=== PATIENT | female | born 1955 | race Caucasian/White ===

== ENCOUNTER 2017-04-19 17:19 | Inpatient (IN) ==
--- NOTE | 2017-04-19 17:37 | Emergency Department Note ---
Abdominal Pain HPI - General Chief Complaint: Abdominal Pain Stated Complaint: incarcerated hernia Time Seen by Provider: 04/19/17 17:23 Source: EMS Mode of arrival: EMS Limitations: no limitations - History of Present Illness HPI Narrative: 61 year old female presenting via EMS transfer from [facility] in [place] with concern over strangulated umbilical hernia, with CT reported from [place], consulted oncology specialist surgeon Dr. Lam, with plans for triage through ER. Patient presenting to ER with 1 day history of acute periumbilical abdominal pain, with nausea and emesis starting early this morning. Tried to eat breakfast and wasn't able to hold it down. Has had umbilical hernia for years, however this morning became exquisitely tender. - Related Data Home Medications Medication Instructions Recorded Confirmed Ascorbic Acid [Vitamin C] 1,000 mg PO DAILY 04/19/17 04/19/17 Insulin Glargine,Hum.rec.anlog 50 unit SQ QAM 04/19/17 04/19/17 [Lantus Solostar] Lisinopril [Zestril] 20 mg PO DAILY 04/19/17 04/19/17 Mecobalamin [B-12] 1,000 mcg SL DAILY 04/19/17 04/19/17 Vitamin D3 5,000 unit PO DAILY 04/19/17 04/19/17 diphenhydrAMINE HCL [Aler-Cap] 25 mg PO DAILYP PRN 04/19/17 04/19/17 metFORMIN HCL [Glucophage] 1,000 mg PO BID 04/19/17 04/19/17 Allergies Allergy/AdvReac Type Severity Reaction Status Date / Time aloe vera Allergy Rash Verified 04/19/17 17:25 Cortisone Allergy Rash Verified 04/19/17 17:25 lavender (Lavandula Allergy Rash Verified 04/19/17 17:25 angustifolia) Penicillins Allergy Rash Verified 04/19/17 17:25 Amoxicillin [From Augmentin] AdvReac Nausea Verified 04/19/17 17:34 azithromycin AdvReac Vomiting Verified 04/19/17 17:25 clavulanic acid AdvReac Nausea Verified 04/19/17 17:34 [From Augmentin] Review of Systems All systems ED: reviewed and negative except as stated. Abdominal Pain PMH - Past Medical History Attestation: Yes: The following information was validated with the patient. Medical history: Reports: non-contributory - Social History Smoking status: Never smoker Physical Exam - General Limitations: no limitations General appearance: alert, in no apparent distress - Head Head exam: atraumatic, normocephalic - Eye Eye exam: Present: normal appearance, PERRL, EOMI - ENT ENT exam: normal exam, normal oropharynx, mucous membranes moist - Neck Neck exam: Present: normal inspection, full ROM - Chest Chest inspection: Present: normal inspection, symmetric chest wall rise - Respiratory Respiratory exam: Present: normal lung sounds bilaterally. Absent: respiratory distress - Cardiovascular Cardiovascular exam: Present: regular rate, normal rhythm, normal heart sounds - Abdominal Exam Abdominal exam: Present: soft, tenderness, normal bowel sounds. Absent: distention, guarding, rebound, rigidity Abdominal tenderness: Present: moderate (periumbilical) Course Vital Signs Temperature 98.4 F 04/19/17 17:19 Pulse Rate 106 H 04/19/17 17:19 Respiratory Rate 16 04/19/17 17:19 Blood Pressure 125/72 04/19/17 17:19 Pulse Oximetry (%) 96 04/19/17 17:19 Temperature 98.4 F 04/19/17 17:19 Pulse Rate 103 H 04/19/17 17:35 Respiratory Rate 16 04/19/17 17:19 Blood Pressure 133/66 04/19/17 17:33 Pulse Oximetry (%) 97 04/19/17 17:35 Abdominal Pain - MDM Narrative Medical decision making narrative: Dr. Lam, oncology specialist surgeon, accepted transfer via [facility] for concern over possible strangulated umbilical hernia defect. CT pushed over from [place]. CBC without leukocytosis, CMP and UA normal. Patient to undergo hernia repair via Dr. Lam, transferred to [facility] in fair condition. - Lab Data Lab results reviewed: Yes I reviewed the patient's lab results. Result diagrams: 04/19/17 18:10 04/19/17 18:10 Lab Results 04/19/17 04/19/17 04/19/17 Range/Units 18:10 18:10 18:16 WBC 10.4 (4.5-11.0) K/mcL RBC 4.55 (4.00-5.20) M/mcL Hgb 14.3 (12.0-15.0) g/dL Hct 42.5 (36.0-48.0) % MCV 93.6 (80.0-100.0) fL MCH 31.5 (26.0-34.0) pg MCHC 33.6 (31.0-36.0) g/dL RDW 13.1 (11.5-14.5) % Plt Count 216 (140-440) K/mcL MPV 7.5 (7.4-10.4) fL Gran % 87.1 H (38.0-78.0) % Lymph % (Auto) 10.3 L (15.5-49.0) % [place] % (Auto) 1.9 (1.0-12.0) % Eos % (Auto) 0.6 (0.0-7.0) % Baso % (Auto) 0.1 (0.0-2.0) % Gran # 9.0 H (1.8-8.0) K/mcL Lymph # (Auto) 1.1 L (1.5-4.8) K/mcL Toole # (Auto) 0.2 (0.1-0.9) K/mcL Eos # (Auto) 0.1 (0.0-0.7) K/mcL Baso # (Auto) 0 (0.0-0.3) K/mcL VBG Lactic Acid (0.5-2.2) mmol/L Sodium 137 (133-145) mmol/L Potassium 4.3 (3.3-5.1) mmol/L Chloride 98 (96-108) mmol/L Carbon Dioxide 26 (22-30) mmol/L Anion Gap 13.0 (8-16) BUN 12 (8-23) mg/dl Creatinine 0.7 (0.6-1.1) mg/dl GFR Calculation 92 Glucose 302 H (70-105) mg/dL Calcium 9.1 (8.6-10.4) mg/dl Total Bilirubin 0.7 (0.0-1.0) mg/dL AST 24 (0-37) U/l ALT 23 (0-40) U/l Alkaline Phosphatase 79 (39-117) U/L Total Protein 7.3 (5.9-8.4) gm/dL Albumin 4.1 (3.2-5.2) gm/dL Globulin 3.2 (2.2-3.7) gm/dL Albumin/Globulin Ratio 1.3 (1.0-2.3) Urine Color Straw Urine Appearance Clear Urine pH 6.0 (5.0-9.0) Ur Specific [place] 1.059 H (1.000-1.035) Urine Protein Neg (NEG) mg/dL Urine Glucose (UA) >=500 A (NEG) mg/dL Urine Ketones 20 A (NEG) mg/dL Urine Occult Blood Neg (<0.03) mg/dL Urine Nitrate Neg (NEG) Urine Bilirubin Neg (NEG) mg/dL Urine Urobilinogen Neg (NEG) mg/dL Ur Leukocyte Esterase Neg (NEG) /uL Urine RBC 0 (0-1) /hpf Urine WBC 0 (0-4) /hpf Ur Squamous Epith Cells 1 (0-4) /hpf Urine Bacteria 0 (0) /hpf Urine Mucus Few (0) /hpf Ur Culture Indicated? No 04/19/17 Range/Units 18:32 WBC (4.5-11.0) K/mcL RBC (4.00-5.20) M/mcL Hgb (12.0-15.0) g/dL Hct (36.0-48.0) % MCV (80.0-100.0) fL MCH (26.0-34.0) pg MCHC (31.0-36.0) g/dL RDW (11.5-14.5) % Plt Count (140-440) K/mcL MPV (7.4-10.4) fL Gran % (38.0-78.0) % Lymph % (Auto) (15.5-49.0) % [place]ole % (Auto) (1.0-12.0) % Eos % (Auto) (0.0-7.0) % Baso % (Auto) (0.0-2.0) % Gran # (1.8-8.0) K/mcL Lymph # (Auto) (1.5-4.8) K/mcL [place]ole # (Auto) (0.1-0.9) K/mcL Eos # (Auto) (0.0-0.7) K/mcL Baso # (Auto) (0.0-0.3) K/mcL VBG Lactic Acid 2.0 (0.5-2.2) mmol/L Sodium (133-145) mmol/L Potassium (3.3-5.1) mmol/L Chloride (96-108) mmol/L Carbon Dioxide (22-30) mmol/L Anion Gap (8-16) BUN (8-23) mg/dl Creatinine (0.6-1.1) mg/dl GFR Calculation Glucose (70-105) mg/dL Calcium (8.6-10.4) mg/dl Total Bilirubin (0.0-1.0) mg/dL AST (0-37) U/l ALT (0-40) U/l Alkaline Phosphatase (39-117) U/L Total Protein (5.9-8.4) gm/dL Albumin (3.2-5.2) gm/dL Globulin (2.2-3.7) gm/dL Albumin/Globulin Ratio (1.0-2.3) Urine Color Urine Appearance Urine pH (5.0-9.0) Ur Specific [place] (1.000-1.035) Urine Protein (NEG) mg/dL Urine Glucose (UA) (NEG) mg/dL Urine Ketones (NEG) mg/dL Urine Occult Blood (<0.03) mg/dL Urine Nitrate (NEG) Urine Bilirubin (NEG) mg/dL Urine Urobilinogen (NEG) mg/dL Ur Leukocyte Esterase (NEG) /uL Urine RBC (0-1) /hpf Urine WBC (0-4) /hpf Ur Squamous Epith Cells (0-4) /hpf Urine Bacteria (0) /hpf Urine Mucus (0) /hpf Ur Culture Indicated? Disposition Pt seen by [facility]/PA only: No Clinical Impression: Umbilical hernia with obstruction, without gangrene Disposition: Xfer As Outpt/Obs ([facility]) Condition: Fair Referrals: Dean Duran MD [Primary Care Provider] -
[2017-04-19 18:34] LABS: Basophils # (Auto) 0 K/mcL (0.0-0.3); Basophils % (Auto) 0.1 % (0.0-2.0); Eosinophils # (Auto) 0.1 K/mcL (0.0-0.7); Eosinophils % (Auto) 0.6 % (0.0-7.0); Granulocytes % (Auto) 87.1 % (38.0-78.0); Lymphocytes # (Auto) 1.1 K/mcL (1.5-4.8); Lymphocytes % (Auto) 10.3 % (15.5-49.0); Mean Cell Volume 93.6 fL (80.0-100.0); Mean Corpuscular HGB Conc 33.6 g/dL (31.0-36.0); Mean Corpuscular Hemoglobin 31.5 pg (26.0-34.0); Monocytes # (Auto) 0.2 K/mcL (0.1-0.9); Monocytes % (Auto) 1.9 % (1.0-12.0); Platelet Count 216 K/mcL (140-440); RBC 4.55 M/mcL (4.00-5.20); Red Cell Distribution Width 13.1 % (11.5-14.5)
[2017-04-19 18:48] LABS: Appearance,Urine CLEAR; Bacteria,Urine 0 /hpf (0); Bilirubin,Urine NEG (NEG); Color,Urine STRAW; Glucose,Urine (UA) >=500 mg/dL (NEG); Leukocyte Esterase,Urine NEG /uL (NEG); Mucus,Urine FEW /hpf (0); Nitrate,Urine NEG (NEG); Protein,Urine NEG (NEG); Specific Gravity,Urine 1.059 (1.000-1.035); Urine Blood NEG mg/dL (<0.03); Urine RBC 0 /hpf (0-1); Urine Squamous Epithelial Cell 1 /hpf (0-4); Urine WBC 0 /hpf (0-4); Urobilinogen,Urine NEG (NEG)
[2017-04-19 18:52] LABS: ALT/SGPT 23 U/l (0-40); Albumin 4.1 gm/dL (3.2-5.2); Albumin/Globulin Ratio 1.3 (1.0-2.3); Alkaline Phosphatase 79 U/L (39-117); Blood Urea Nitrogen 12 mg/dl (8-23)
[2017-04-19] MEDS ORDERED: LEVOFLOXACIN 750 MG/150 ML BAG IV ONE (19:20)
--- NOTE | 2017-04-19 19:28 | General Surg History&Physical ---
History of Present Illness Patient information: Note initiated : 04/19/17 at 7:26 pm Service Date, if different from initiated Date: [] Patient: Anna Leary a 61 y/o F admitted on for incarcerated hernia. Chief Complaint: [] HPI: Ms. Leary is a 61 year old F with history of recurrent abdominal pain over the last few days. She had acute onset of severe pain this morning after breakfast. This was followed by multiple episodes of nausea and vomiting with emesis over 6 times. She was seen at the hospital in [place] and referred here with an incarcerated umbilical hernia with bowel obstruction. She has a loop of bowel that is tightly incarcerated in her umbilicus with distal obstruction. She also has uncontrolled diabetes. Review of Systems - Constitutional headache(s) - EENT Nose, mouth and throat: headache(s) - Cardiovascular no chest pain, no dyspnea on exertion, no irregular heart rhythm, no palpatations, no syncope - Respiratory no wheezing, no snoring, no chest congestion - Gastrointestinal abdominal pain, cramping, heartburn, nausea, vomiting - Genitourinary Genitourinary: nocturia, urinary frequency - Musculoskeletal arthralgias, back pain, joint swelling, myalgias, stiffness - Integumentary no change in hair, no changing lesions, no pruritus, no rash - Neurological numbness, paresthesias - Psychiatric no anxiety, no confusion, no depression - Endocrine no polydipsia, no polyphagia, no polyuria - Hematologic/Lymphatic no easy bleeding, no easy bruising, no lymphadenopathy - Allergic/Immunologic no tongue swelling, no throat swelling, no uticaria, no wheezing, no lip swelling Past History Past medical history: Diabetes mellitus uncontrolled Hypertension Gastroesophageal reflux disease Past surgical history: Open cholecystectomy Open treatment with internal fixation left leg Left total knee arthroplasty Past family history: Mother age 24 due to polio complications Father age 81 due to myocardial infarction Brother with diabetes mellitus and hypertension Grandparent with breast cancer Past social history: Employed Denies alcohol use Denies drug use Medications and Allergies Home Medications Medication Instructions Recorded Confirmed Type Ascorbic Acid [Vitamin C] 1,000 mg PO DAILY 04/19/17 04/19/17 History Insulin Glargine,Hum.rec.anlog 50 unit SQ QAM 04/19/17 04/19/17 History [Lantus Solostar] Lisinopril [Zestril] 20 mg PO DAILY 04/19/17 04/19/17 History Mecobalamin [B-12] 1,000 mcg SL DAILY 04/19/17 04/19/17 History Vitamin D3 5,000 unit PO DAILY 04/19/17 04/19/17 History diphenhydrAMINE HCL [Aler-Cap] 25 mg PO DAILYP PRN 04/19/17 04/19/17 History metFORMIN HCL [Glucophage] 1,000 mg PO BID 04/19/17 04/19/17 History Allergies Allergy/AdvReac Type Severity Reaction Status Date / Time aloe vera Allergy Rash Verified 04/19/17 17:25 Cortisone Allergy Rash Verified 04/19/17 17:25 lavender (Lavandula Allergy Rash Verified 04/19/17 17:25 angustifolia) Penicillins Allergy Rash Verified 04/19/17 17:25 Amoxicillin [From Augmentin] AdvReac Nausea Verified 04/19/17 17:34 azithromycin AdvReac Vomiting Verified 04/19/17 17:25 clavulanic acid AdvReac Nausea Verified 04/19/17 17:34 [From Augmentin] Exam Temp Pulse Resp BP Pulse Ox 98.4 F 103 H 16 133/66 97 04/19/17 17:19 04/19/17 17:35 04/19/17 17:19 04/19/17 17:33 04/19/17 17:35 - General physical appearance well developed, well nourished, no distress, moderate pain, obese - Eyes PERRL, normal ocular movement - ENT normal pinna, normal nares, normal mucosa, no hearing loss, no congestion, decreased hearing (Decreased hearing left ear) - Head Head exam IM: Present: atraumatic, normocephalic - Neck no masses, no bruits, trachea midline, no lymphadectomy, no venous distension - Cardiovascular Cardiovascular exam IM: Present: normal rate and rhythm, RRR, +S1, +S2. Absent : JVD, systolic murmur - Respiratory normal expansion, normal respiratory effort, clear to percussion, clear to auscultation - Abdomen Abdomen: Present: soft, non tender, bowel sounds Hernia: Present: none, umbilical (Tender abdomen in the periumbilical area with large amount of debris and umbilicus; hyperactive bowel sounds) - Genitourinary Present: normal external genitalia - Integumentary Present: no rash, no growths, no abnormal pigmentation - Neurologic Present: normal coordination, normal sensation - Musculoskeletal Present: normal gait, normal posture, other (Operative changes left knee well- healed) - Psychiatric Present: oriented to time, oriented to person, oriented to place, speech is normal, memory intact Assessment and Plan (1) Umbilical hernia with obstruction, without gangrene Patient has small bowel obstruction and will have operative repair tonight. She will be covered with Levaquin IV. Status: Acute (2) Diabetes mellitus type 1, uncontrolled, insulin dependent Blood sugars will be controlled with sliding scale insulin until the patient can take p.o. Status: Acute Qualifiers: Diabetes mellitus complication status: with hyperglycemia Qualified Code(s) : E10.65 - Type 1 diabetes mellitus with hyperglycemia
[2017-04-19] MEDS ORDERED: fentaNYL 100 MCG/2 ML VIAL IV ONE (20:25)
[2017-04-19] MEDS ORDERED: ROCURONIUM 10 MG/ML ML IV ONE (20:25)
[2017-04-19] MEDS ORDERED: ONDANSETRON 4 MG/2 ML VIAL IV ONE (20:25)
[2017-04-19] MEDS ORDERED: DEXAMETHASONE 10 MG/ML VIAL IV ONE (20:25)
[2017-04-19] MEDS ORDERED: SUCCINYLCHOLINE 20 MG/ML ML IV ONE (20:25)
[2017-04-19] MEDS ORDERED: GLYCOPYRROLATE 0.2 MG/ML VIAL IV ONE (20:25)
[2017-04-19] MEDS ORDERED: NEOSTIGMINE 1 MG/ML VIAL IV ONE (20:25)
[2017-04-19] MEDS ORDERED: PROPOFOL 200 MG/20 ML VIAL IV ONE (20:25)
[2017-04-19] MEDS ORDERED: MIDAZOLAM 5 MG/5 ML VIAL IV ONE (20:25)
[2017-04-19] MEDS ORDERED: LIDOCAINE HCL/PF 100 MG/5 ML SYRINGE IV ONE (20:25)
[2017-04-19] MEDS ORDERED: MEPERIDINE 25 MG/ML SYRINGE IV PRN (20:56)
[2017-04-19] MEDS ORDERED: NALOXONE HCL 0.4 MG/ML VIAL IV PRN (20:56)
[2017-04-19] MEDS ORDERED: BENZOCAINE/MENTHOL 1 LOZENGE PO PRN (20:56)
[2017-04-19] MEDS ORDERED: ACETAMINOPHEN 1,000 MG/100 ML BOTTLE IV ONE (20:56)
[2017-04-19] MEDS ORDERED: diphenhydrAMINE 50 MG/ML VIAL IV PRN (20:56)
[2017-04-19] MEDS ORDERED: HYDROmorphone 2 MG/ML SYRINGE IV PRN ×2 (20:56→22:06)
[2017-04-19] MEDS ORDERED: FLUMAZENIL 0.1 MG/ML ML IV PRN (20:56)
[2017-04-19] MEDS ORDERED: IPRATROPIUM/ALBUTEROL 3 ML AMPUL.NEB NEB PRN (20:56)
[2017-04-19] MEDS ORDERED: fentaNYL 100 MCG/2 ML VIAL IV PRN (20:56)
[2017-04-19] MEDS ORDERED: ONDANSETRON 4 MG/2 ML VIAL IV PRN ×2 (20:56→22:06)
[2017-04-19] MEDS ORDERED: LACTATED RINGERS 250 ML IV PRN (20:56)
[2017-04-19] MEDS ORDERED: LACTATED RINGERS 1,000 ML IV SCH (21:00)
--- NOTE | 2017-04-19 21:12 | Brief Operative Note ---
Date of procedure: 04/19/17 Pre-op diagnosis: incarcerated umbilical hernia with small bowel obstruction Post-op diagnosis: other (incarcerated umbilical hernia with small bowel obstruction) Procedure: exploratory laparotomy Grafts/Implants: No Anesthesia: GETA Findings: segment of small bowel tightly incarcerated in umbilical fascial defect but the bowel was viable Complications: none Surgeon: Gracia Lam Specimens Removed/Pathology: none sent Condition: stable Disposition: PACU
[2017-04-19] MEDS ORDERED: LEVOFLOXACIN 500 MG/100 ML BAG IV SCH (22:06)
[2017-04-19] MEDS ORDERED: DEXTROSE 31 GM ORAL.SUSP PO PRN (22:06)
[2017-04-19] MEDS ORDERED: DEXTROSE 50% 50 ML VIAL IV PRN (22:06)
[2017-04-19] MEDS ORDERED: HYDROmorphone 2 MG/ML SYRINGE ONE (22:22)
[2017-04-19] MEDS: 0.9 % SODIUM CHLORIDE 10 ML SYRINGE IV SCH (22:28)
[2017-04-19] MEDS: 0.9 % SODIUM CHLORIDE 1,000 ML IV SCH (22:28)
[2017-04-20] MEDS: 0.9 % SODIUM CHLORIDE 1,000 ML IV SCH ×3 (06:08→16:48)
[2017-04-20 07:33] LABS: Mean Cell Volume 94.7 fL (80.0-100.0); Mean Corpuscular HGB Conc 33.8 g/dL (31.0-36.0); Platelet Count 190 K/mcL (140-440); RBC 4.16 M/mcL (4.00-5.20); Red Cell Distribution Width 13.1 % (11.5-14.5)
[2017-04-20] MEDS: 0.9 % SODIUM CHLORIDE 10 ML SYRINGE IV SCH ×3 (07:50→21:47)
[2017-04-20 07:51] LABS: ALT/SGPT 18 U/l (0-40); Albumin 3.6 gm/dL (3.2-5.2); Albumin/Globulin Ratio 1.3 (1.0-2.3); Alkaline Phosphatase 65 U/L (39-117); Bilirubin,Direct < 0.2 mg/dL (0.0-0.3); Blood Urea Nitrogen 12 mg/dl (8-23); Gamma Glutamyl Transpeptidase 23 U/L (5-36); Magnesium 1.6 mg/dL (1.6-2.5); Uric Acid 4.2 mg/dL (2.5-8.0)
[2017-04-20] MEDS ORDERED: HYDROcodone/APAP 10/325MG TABLET PO PRN (07:52)
[2017-04-20] MEDS ORDERED: MEPERIDINE 25 MG/ML SYRINGE IV PRN (07:53)
--- NOTE | 2017-04-20 08:41 | XRay Report ---
HISTORY: Reason for Exam:incarcerated hernia, surgical patient , preop FINDINGS: The lungs are clear. The heart, mediastinum, stephanie and pleura are normal. IMPRESSION: Normal chest. Interpreted and Authenticated by: Shankar Arriaga 04/20/17
--- NOTE | 2017-04-20 08:43 | XRay Report ---
HISTORY: Reason for Exam:incarcerated hernia FINDINGS: The bowel gas pattern is normal. There is no free intra-abdominal air or evidence or bowel obstruction. Contrast is present in the kidneys and bladder following the preceding CT scan. There is no urinary tract obstruction. Multiple surgical clips are present in the gallbladder fossa. Arthritis is seen in the facet joints in the lower lumbar spine. IMPRESSION: Normal exam Interpreted and Authenticated by: Shankar Arriaga 04/20/17
[2017-04-20] MEDS: FAMOTIDINE/PF 20 MG/2 ML VIAL IV SCH ×2 (08:50→20:50)
[2017-04-20] MEDS: ENOXAPARIN 40 MG/0.4 ML SYRINGE SQ SCH (08:50)
[2017-04-20] MEDS: METOCLOPRAMIDE 10 MG/2 ML VIAL IV SCH ×4 (08:50→23:33)
[2017-04-20] MEDS: ACETAMINOPHEN 1,000 MG/100 ML BOTTLE IV PRN ×3 (08:51→21:35)
[2017-04-20] MEDS ORDERED: LEVOFLOXACIN 500 MG/100 ML BAG IV SCH (09:00)
[2017-04-20] MEDS: INSULIN LISPRO 1 UNIT/0.01 ML UNIT SQ SCH ×4 (09:54→20:00)
[2017-04-20 10:59] LABS: Band Neutrophils % 1 % (0-10); Lymphocytes % 11 % (15-49); Monocytes % (Manual) 1 % (1-12); Platelet Estimate NORM (NORMAL); RBC Morphology NORM (NORMAL); Segmented Neutrophils % 87 % (38-78)
--- NOTE | 2017-04-20 12:57 | General Surgery Progress Note ---
Subjective Patient reports: feels better, pain is less, flatus, no bowel movement, afebrile Narrative: Note initiated : 04/20/17 at 12:57 pm Service Date, if different from initiated Date: [] Patient: Anna Leary 61 y/o F admitted on 04/19/17 for incarcerated hernia. Chief Complaint: [Patient feels much better. Her incisional discomfort is controlled with the IV Tylenol and low-dose Dilaudid. She has not had nausea or vomiting. She has passed a small amount of flatus. She is afebrile] Objective Temp Pulse Resp BP Pulse Ox 97.9 F 87 18 159/77 98 04/20/17 11:47 04/20/17 04:04 04/20/17 11:47 04/20/17 11:47 04/20/17 11:47 - Additional Data Intake & Output - Last 24 hours: Intake & Output 04/18/17 04/19/17 04/20/17 04/21/17 05:59 05:59 05:59 05:59 Intake Total 100 / 100 1558 / 1558 Output Total 450 / 450 1950 / 1950 Balance -350 / -350 -392 / -392 Weight 215 lb - General physical appearance no distress, moderate pain - Eyes PERRL - ENT no congestion - Neck no venous distension - Respiratory normal respiratory effort, clear to auscultation - Cardiovascular Cardiovascular exam: Present: normal rate and rhythm, RRR, +S1, +S2. Absent: gallop, JVD - Abdomen tender, bowel sounds, surgical scars, distended (Mild distention of abdomen but with good active bowel sounds; incision looks good with small amount of bleeding ;) - Integumentary no rash, no growths, no abnormal pigmentation - Neurologic normal coordination, normal sensation - Musculoskeletal normal gait, normal posture - Psychiatric oriented to time, oriented to person, oriented to place, speech is normal, memory intact - Labs 04/20/17 04:40 04/20/17 04:40 Diabetes panel 04/19/17 04/20/17 Range/Units 18:10 04:40 Sodium 137 139 (133-145) mmol/L Potassium 4.3 4.2 (3.3-5.1) mmol/L Chloride 98 100 (96-108) mmol/L Carbon Dioxide 26 25 (22-30) mmol/L BUN 12 12 (8-23) mg/dl Creatinine 0.7 0.7 (0.6-1.1) mg/dl Glucose 302 H 292 H (70-105) mg/dL Calcium 9.1 8.5 L (8.6-10.4) mg/dl AST 24 17 (0-37) U/l ALT 23 18 (0-40) U/l Alkaline Phosphatase 79 65 (39-117) U/L Total Protein 7.3 6.3 (5.9-8.4) gm/dL Albumin 4.1 3.6 (3.2-5.2) gm/dL Triglycerides 69 (<150) mg/dl Calcium panel 04/19/17 04/20/17 Range/Units 18:10 04:40 Calcium 9.1 8.5 L (8.6-10.4) mg/dl Phosphorus 3.1 (2.7-4.5) mg/dL Albumin 4.1 3.6 (3.2-5.2) gm/dL Pituitary panel 04/19/17 04/20/17 Range/Units 18:10 04:40 Sodium 137 139 (133-145) mmol/L Potassium 4.3 4.2 (3.3-5.1) mmol/L Chloride 98 100 (96-108) mmol/L Carbon Dioxide 26 25 (22-30) mmol/L BUN 12 12 (8-23) mg/dl Creatinine 0.7 0.7 (0.6-1.1) mg/dl Glucose 302 H 292 H (70-105) mg/dL Calcium 9.1 8.5 L (8.6-10.4) mg/dl Adrenal panel 04/19/17 04/20/17 Range/Units 18:10 04:40 Sodium 137 139 (133-145) mmol/L Potassium 4.3 4.2 (3.3-5.1) mmol/L Chloride 98 100 (96-108) mmol/L Carbon Dioxide 26 25 (22-30) mmol/L BUN 12 12 (8-23) mg/dl Creatinine 0.7 0.7 (0.6-1.1) mg/dl Glucose 302 H 292 H (70-105) mg/dL Calcium 9.1 8.5 L (8.6-10.4) mg/dl Total Bilirubin 0.7 0.7 (0.0-1.0) mg/dL AST 24 17 (0-37) U/l ALT 23 18 (0-40) U/l Alkaline Phosphatase 79 65 (39-117) U/L Total Protein 7.3 6.3 (5.9-8.4) gm/dL Albumin 4.1 3.6 (3.2-5.2) gm/dL Assessment and Plan (1) Umbilical hernia with obstruction, without gangrene Status: Acute Assessment and plan: Stable postoperative day 1 Reduce Dilaudid 2.5 mg IV every 4 hours as needed Advance to full liquid diet Have dressing changed Encourage patient to ambulate Current Visit: Yes (2) Diabetes mellitus type 1, uncontrolled, insulin dependent Status: Acute Current Visit: Yes - Time Spent With Patient Total time spent is greater than 50% in coordination of care (as documented) at patient's floor/unit and/or counseling patient:
[2017-04-21] MEDS: 0.9 % SODIUM CHLORIDE 1,000 ML IV SCH ×3 (00:27→09:13)
[2017-04-21] MEDS: METOCLOPRAMIDE 10 MG/2 ML VIAL IV SCH (05:40)
[2017-04-21] MEDS: 0.9 % SODIUM CHLORIDE 10 ML SYRINGE IV SCH (05:41)
[2017-04-21 08:24] LABS: ALT/SGPT 17 U/l (0-40); Albumin 3.7 gm/dL (3.2-5.2); Albumin/Globulin Ratio 1.4 (1.0-2.3); Alkaline Phosphatase 64 U/L (39-117); Bilirubin,Direct < 0.2 mg/dL (0.0-0.3); Blood Urea Nitrogen 10 mg/dl (8-23); Gamma Glutamyl Transpeptidase 24 U/L (5-36); Magnesium 1.8 mg/dL (1.6-2.5); Uric Acid 3.8 mg/dL (2.5-8.0)
[2017-04-21] MEDS: INSULIN LISPRO 1 UNIT/0.01 ML UNIT SQ SCH ×2 (08:37→11:53)
[2017-04-21] MEDS ORDERED: ACETAMINOPHEN 500 MG TABLET PO PRN (08:59)
[2017-04-21] MEDS ORDERED: LISINOPRIL 20 MG TABLET PO SCH (09:00)
[2017-04-21] MEDS ORDERED: LEVOFLOXACIN 500 MG TABLET PO SCH (09:00)
[2017-04-21] MEDS ORDERED: FAMOTIDINE 20 MG TABLET PO SCH (09:00)
[2017-04-21] MEDS: FAMOTIDINE/PF 20 MG/2 ML VIAL IV SCH (09:14)
[2017-04-21] MEDS: ENOXAPARIN 40 MG/0.4 ML SYRINGE SQ SCH (09:34)
--- NOTE | 2017-04-21 12:23 | Discharge Summary ---
Providers - Providers Patient information: Note initiated : 04/21/17 at 12:19 pm Service Date, if different from initiated Date: [] Patient: Anna Leary 61 y/o F admitted on 04/19/17 for incarcerated hernia. Chief Complaint: [] Date of admission: 04/19/17 Discharge date: 04/21/17 Attending physician: Gracia Lam Hospitalization Hospital course: 61-year-old female transferred from [facility] with the clinical bowel obstruction due to an incarcerated hernia at the umbilicus. She had acute onset of severe abdominal pain with nausea and vomiting. CT of the abdomen confirmed small bowel obstruction due to incarceration and the hernia defect. She was admitted to the emergency room and taken to the OR where exploratory laparotomy was done. She was found to have a segment of small bowel tightly incarcerated in the umbilical hernia defect. It was swollen and dusky but reached had return of excellent peristaltic activity. The rest of her bowel was unremarkable. She tolerated the operative procedure without incident. She was given clear liquids on the following morning and her diet has been slowly advanced. She no longer has nausea or vomiting. Her abdominal exam is benign. She is stable and was discharged home and satisfactory condition. Discharge diagnosis: Incarcerated umbilical hernia Secondary discharge diagnosis: Small bowel obstruction due to incarcerated hernia Reason for admission: Abdominal pain with nausea and vomiting Procedures: Exploratory laparotomy with umbilical hernia repair Complications: None Exam Temp Pulse Resp BP Pulse Ox 98.3 F 70 16 173/92 96 04/21/17 11:26 04/21/17 11:26 04/21/17 11:26 04/21/17 11:26 04/21/17 11:26 - General physical appearance well developed, well nourished, no distress - Eyes PERRL, normal ocular movement - ENT normal pinna, normal nares, normal mucosa, no hearing loss, no congestion - Head Head exam IM: Present: atraumatic, normocephalic - Neck no masses, no bruits, trachea midline, no lymphadectomy, no venous distension - Cardiovascular Cardiovascular exam IM: Present: normal rate and rhythm - Respiratory normal expansion, normal respiratory effort, clear to percussion, clear to auscultation - Abdomen Abdomen: Present: soft, tender, bowel sounds, distended (No significant distention; good active bowel sounds; mild bleeding around the incision records) Hernia: Present: none - Genitourinary Present: normal external genitalia - Integumentary Present: no rash, no growths, no abnormal pigmentation - Neurologic Present: normal coordination, normal sensation - Musculoskeletal Present: normal gait, normal posture - Psychiatric Present: oriented to time, oriented to person, oriented to place, speech is normal, memory intact Discharge Plan - Patient/Caregiver Discharge Instructions Activity: increase activity as tolerated Diet: Regular Diet (Cystogram) Additional Instructions: Patient will leave Tegaderm in place until she returns to the office Follow-up in the office in 2 weeks - Follow up Plan Follow up with: Dean Duran MD [Primary Care Provider] - Disposition: Home, Self-Care Prognosis: Good Rehab Potential: Good I certify that the patient requires SNF services.: No Overall status at discharge: patient is progressing back to baseline Pending Studies Resuscitation Status Full Code Diet Full Liquid Diet Start Sat Oct 7 Lunch Acetaminophen (Tylenol) 1,000 mg PO Q6HP PRN PRN Reason: PAIN/FEVER > 101 Last Admin: 04/21/17 09:33 Dose: 1,000 mg Diagnostic Test (Pha) (Accu-Chek) 1 each [facility] Last Admin: 04/21/17 11:54 Dose: 1 each Admin: 04/21/17 08:37 Dose: 1 each Admin: 04/20/17 20:00 Dose: 1 each Admin: 04/20/17 16:35 Dose: 1 each Admin: 04/20/17 13:23 Dose: Admin: 04/20/17 09:00 Dose: Not Given Enoxaparin Sodium (Lovenox) 40 mg SQ DAILY [facility] Last Admin: 04/21/17 09:34 Dose: 40 mg Admin: 04/20/17 08:50 Dose: 40 mg Famotidine (Pepcid) 20 mg PO BID [facility] Last Admin: 04/21/17 09:33 Dose: 20 mg Insulin Human Lispro (Humalog) 0 unit SQ ACHS [facility] PRN Reason: Protocol Last Admin: 04/21/17 11:53 Dose: 6 unit Admin: 04/21/17 08:37 Dose: 2 unit Admin: 04/20/17 20:00 Dose: Admin: 04/20/17 16:48 Dose: 6 unit Admin: 04/20/17 12:58 Dose: 6 unit Admin: 04/20/17 09:54 Dose: 6 unit Levofloxacin (Levaquin) 500 mg PO DAILY [facility] Last Admin: 04/21/17 09:34 Dose: 500 mg Lisinopril (Zestril) 20 mg PO DAILY [facility] Last Admin: 04/21/17 08:38 Dose: 20 mg Meperidine HCl (Demerol) 25 mg IV Q4HP PRN PRN Reason: Pain Last Admin: 04/21/17 00:26 Dose: 25 mg Metoclopramide HCl (Reglan) 10 mg IV Q6 [facility] Last Admin: 04/21/17 05:40 Dose: 10 mg Admin: 04/20/17 23:33 Dose: 10 mg Admin: 04/20/17 17:41 Dose: 10 mg Admin: 04/20/17 12:57 Dose: 10 mg Admin: 04/20/17 08:50 Dose: 10 mg Ondansetron HCl (Zofran) 4 mg IV Q6HP PRN PRN Reason: Nausea And Vomiting Last Admin: 04/20/17 14:58 Dose: 4 mg Sodium Chloride (Saline Flush) 10 ml IV Q8 [facility] Last Admin: 04/21/17 05:41 Dose: Not Given Admin: 04/20/17 21:47 Dose: Not Given Admin: 04/20/17 15:08 Dose: Not Given Admin: 04/20/17 07:50 Dose: Not Given Admin: 04/19/17 22:28 Dose: 10 ml Shift Summary 04/21/17 04:38 Shift Summary by Angus Mcconnell Addendum entered by Angus Mcconnell 04/21/17 04:44: Pt's ABD pain controlled with IV OFIRMEV - last dose 2134, and IV Demerol 25mg - last dose given 0025. Original Note: Patient has rested a few hrs tonight. She has been up AMB (I) to & from [facility] and w/ SBA out in [place]midt x2 - gait stable w/o device. She is voiding QS into hat. IV LT A/C infusing NS @ 125ml/hr. Midline ADB incision w/ corbin, min amt sang drainage, and covered w/ Tegaderm. She is tolerating a Full liquid diet. HS blood sugar was 121. VS - B/P has been slowly increasing - last was 195/80 - pt states she has not been taking her oral B/P med. All other VS - WNL on R.A.. She is calm, pleasant, & cooperative. Initialized on 04/21/17 04:38 - END OF NOTE
--- NOTE | 2017-04-26 10:42 | Operative Note ---
DATE OF OPERATION: 04/19/2017 PREOPERATIVE DIAGNOSIS: Incarcerated umbilical hernia with small bowel obstruction. POSTOPERATIVE DIAGNOSIS: Incarcerated umbilical hernia with small bowel obstruction. PROCEDURE: Exploratory laparotomy. SURGEON: Gracia Lam MD FINDINGS: Segment of small bowel tightly incarcerated and umbilical fascial defect, but with viable bowel. DESCRIPTION OF PROCEDURE: Under general anesthesia, the patient's abdomen was prepped and draped in a sterile field. A midline periumbilical incision was made. After extension through the fascia, the loop of bowel that was tightly incarcerated, the umbilical hernia was noted. It was gently reduced. The bowel was initially purplish and dusky but it pinked up without difficulty and had good peristalsis suggesting its viability. The rest of the small bowel was unremarkable. No other pathology was noted. The umbilical hernia sac was pulled out and excised. The fascial defect was closed with multiple 0 Prolene sutures. The midline was then closed with running #1 Prolene. Subcutaneous tissue was closed with 2-0 Monocryl. Skin was closed with corbin. Patient tolerated the procedure well. She was awakened. A dressing was placed. She was transferred to the Post-Anesthetic Care Unit in stable satisfactory condition. LCS:edward Job ID: [id number] Doc ID: [id number] Gracia Lam M.D.
== END 2017-04-21 13:15 | disposition home or self-care (01) | DRG 355 ==
LOC: ED 17:19 → MEDSUR 22:03
PROVIDERS: ADMIT Family Medicine Adult Medicine; ATTEND Family Medicine Adult Medicine